=== PATIENT | male | born 1990 | race Caucasian/White ===

== ENCOUNTER 2025-07-01 10:22 | Emergency (ER) | payer SELFPAY ==
[~2025-07-01] VITALS: Ht 170.2 cm; Wt 79.0 kg
[2025-07-01 10:28] VITALS: O2SAT 99
[2025-07-01] MEDS: LORAZEPAM 1MG TABLET PO ONE (11:09)
[2025-07-01 11:24] LABS: BASOPHILS % 0.3 % (0.0-2.0); EOSINOPHILS % 1.7 % (0.0-5.0); HEMATOCRIT. 47.4 % (42.0-52.0); HEMOGLOBIN. 15.5 g/dL (14.0-18.0); LYMPHOCYTES % 9.0 % (20.0-50.0); MEAN PLATELET VOLUME 9.2 fl (7.4-10.4); MONOCYTES % 3.7 % (2.0-8.0); NEUTROPHILS % 85.3 % (40.0-76.0); PLATELET 201 x1000/uL (130-400); RED BLOOD CELL COUNT 5.25 mill/uL (4.7-6.1); RED CELL DISTRIBUTION WIDTH 13.0 % (11.6-14.6)
[2025-07-01 11:40] LABS: CREATININE 0.8 mg/dL (0.6-1.3)
[2025-07-01 11:41] LABS: UREA NITROGEN BLOOD 9 mg/dL (9-23)
[2025-07-01 11:42] LABS: ASPARTATE AMINOTRANSFERASE 23 IU/L (<34)
[2025-07-01 11:43] LABS: BILIRUBIN DIRECT < 0.1 mg/dL (<=3.0); BILIRUBIN TOTAL 0.3 mg/dL (0.1-1.0); PROTEIN TOTAL 5.8 g/dL (6.0-8.3)
[2025-07-01] MEDS ORDERED: NALO4SPR BOTHNSTRLS (15:22)
[2025-07-01 19:36] VITALS: BP 125/70; PULSE 90; RESP 20; TEMP 36.8; O2SAT 99
== END 2025-07-01 19:39 | disposition home or self-care (01) ==
LOC: ER 10:29
DX: T50.901A Poisoning by unspecified drugs, medicaments and biological substances, accidental (unintentional), initial encounter (principal); E11.9 Type 2 diabetes mellitus without complications; F17.200 Nicotine dependence, unspecified, uncomplicated; F20.9 Schizophrenia, unspecified; F10.90 Alcohol use, unspecified, uncomplicated; Z79.899 Other long term (current) drug therapy; Y92.89 Other specified places as the place of occurrence of the external cause; Y90.9 Presence of alcohol in blood, level not specified
CPT/HCPCS: 36415; 80048; 80076; 80307; 80320; 80329; 85025; 93005; 99284; 99291; G0480

== ENCOUNTER 2025-07-01 21:37 | Emergency (ER) | payer SELFPAY ==
[~2025-07-01] VITALS: Ht 167.6 cm; Wt 75.0 kg
[~2025-07-01 21:37] MED LIST: NALO4SPR BOTHNSTRLS
[2025-07-01 21:51] VITALS: O2SAT 97
[2025-07-02 00:54] LABS: HEMATOCRIT. 47.5 % (42.0-52.0); HEMOGLOBIN. 15.5 g/dL (14.0-18.0); MEAN PLATELET VOLUME 9.5 fl (7.4-10.4); PLATELET 219 x1000/uL (130-400); RED BLOOD CELL COUNT 5.27 mill/uL (4.7-6.1); RED CELL DISTRIBUTION WIDTH 13.1 % (11.6-14.6)
[2025-07-02 01:09] LABS: CREATININE 0.8 mg/dL (0.6-1.3); UREA NITROGEN BLOOD 8 mg/dL (9-23)
[2025-07-02 01:11] LABS: ASPARTATE AMINOTRANSFERASE 18 IU/L (<34); BILIRUBIN DIRECT 0.2 mg/dL (<=3.0)
[2025-07-02 01:12] LABS: BILIRUBIN TOTAL 0.5 mg/dL (0.1-1.0); PROTEIN TOTAL 6.7 g/dL (6.0-8.3)
[2025-07-02 02:24] LABS: CLARITY URINE TURBID (CLEAR); GLUCOSE URINE NEGATIVE (NEGATIVE); KETONES URINE NEGATIVE (NEGATIVE); LEUKOCYTE ESTERASE URINE NEGATIVE (NEGATIVE); NITRITE URINE NEGATIVE (NEGATIVE); OCCULT BLOOD URINE NEGATIVE (NEGATIVE); PH URINE 5.0 (4.5-8.0); PROTEIN URINE TRACE (NEGATIVE); SPECIFIC GRAVITY URINE 1.028 (1.005-1.030); UROBILINOGEN URINE 0.2 E.U./dL (0.2-1.0)
[2025-07-02] MEDS: ONDANSETRON 4MG ODT PO ONE (02:55)
[2025-07-02 03:07] LABS: COLOR URINE YELLOW (YELLOW)
[2025-07-02 03:10] LABS: RBC URINE NONE SEEN /hpf (0-2); SQUAMOUS EPITHELIAL CELL URINE 1+ /lpf (RARE/1+); WBC URINE NONE SEEN /hpf (0-2)
[2025-07-02 03:11] LABS: BACTERIA URINE TRACE; MUCUS URINE TRACE /lpf (NONE/TRACE); RENAL EPITHELIAL CELLS URINE 1+ /lpf
[2025-07-02] MEDS: ONDANSETRON HCL 4MG/2ML INJ IM ONE (03:12)
[2025-07-02] MEDS: KETOROLAC 15MG/ML VIAL IM ONE (03:12)
[2025-07-02 05:34] LABS: LYMPHOCYTES % MANUAL 5.0 % (20.0-50.0); MONOCYTES % MANUAL 1.0 % (2.0-8.0); NEUTROPHILS % MANUAL 94.0 % (45.0-75.0)
[2025-07-02 05:35] LABS: PLATELET ESTIMATE NORMAL
[2025-07-02] MEDS: OLANZAPINE 5MG TABLET ODT PO SCH (13:37)
[2025-07-02] MEDS: HYDROXYZINE 25MG TABLET PO PRN (13:37)
[2025-07-02 13:51] LABS: *AMPHETAMINES SCREEN URINE PRESUMPTIVE POSITIVE (NEGATIVE); *BARBITURATES SCREEN URINE NEGATIVE (NEGATIVE); *BENZODIAZEPINES SCREEN URINE NEGATIVE (NEGATIVE); *COCAINE SCREEN URINE NEGATIVE (NEGATIVE); ECSTASY MDMA SCREEN URINE NEGATIVE (NEGATIVE); METHADONE URINE SCREEN NEGATIVE (NEGATIVE)
[2025-07-02 13:52] LABS: CANNABINOID URINE SCREEN PRESUMPTIVE POSITIVE (NEGATIVE); OPIATES URINE SCREEN NEGATIVE (NEGATIVE); PHENCYCLIDINE URINE SCREEN NEGATIVE (NEGATIVE)
[2025-07-02 20:03] VITALS: BP 140/86; PULSE 95; RESP 16; TEMP 36.9; O2SAT 97
== END 2025-07-02 20:34 | disposition short-term general hospital (02) ==
LOC: ER 21:37
DX: R46.2 Strange and inexplicable behavior (principal); J45.909 Unspecified asthma, uncomplicated; Z79.899 Other long term (current) drug therapy; Z20.822 Contact with and (suspected) exposure to COVID-19
CPT/HCPCS: 99285; 80076; 80305; 80048; 81003; 80307; 80329; 80320; 83690; 85025; 36415; 96372; 87426; J1885; J2405; Z7610; G0480